=== PATIENT | female | born 1985 | race African-American/Black ===

== ENCOUNTER 2018-10-20 09:44 | Emergency (ER) | payer BC ==
[~2018-10-20] VITALS: Ht 167.6 cm; Wt 82.0 kg
[2018-10-20 10:03] VITALS: BP 155/68
== END 2018-10-20 10:25 | disposition left against medical advice (07) ==
LOC: ER 09:44
DX: Z53.21 Procedure and treatment not carried out due to patient leaving prior to being seen by health care provider (principal)
CPT/HCPCS: 93005

== ENCOUNTER 2021-07-14 08:08 | Emergency (ER) | payer BC, MEDICAID ==
[~2021-07-14] VITALS: Ht 170.2 cm; Wt 82.0 kg
[2021-07-14] MEDS ORDERED: FAMOTIDINE 20MG/2ML VIAL IV STA (08:24)
[2021-07-14] MEDS ORDERED: MORPHINE SULFATE 4 MG/ML CPJ (NOT FOR IM USE) IV STA (08:24)
[2021-07-14] MEDS ORDERED: ONDANSETRON HCL 4MG/2ML INJ IV STA (08:24)
[2021-07-14] MEDS ORDERED: SODIUM CHLORIDE 0.9% 1,000 ML IV ONE ×2 (08:30→11:45)
[2021-07-14 08:56] LABS: BASOPHILS % 0.4 % (0.0-2.0); EOSINOPHILS % 0.1 % (0.0-5.0); HEMATOCRIT. 45.1 % (36.0-48.0); HEMOGLOBIN. 14.9 g/dL (12.0-16.0); LYMPHOCYTES % 10.4 % (20.0-50.0); MEAN CORPUSCULAR HEMOGLOBIN 29.5 pg (28.0-32.0); MEAN CORPUSCULAR VOLUME 89.2 fL (81.0-99.0); MEAN PLATELET VOLUME 8.3 fl (7.4-10.4); MONOCYTES % 6.1 % (2.0-8.0); PLATELET 259 x1000/uL (130-400); RED BLOOD CELL COUNT 5.06 mill/uL (4.2-5.4); RED CELL DISTRIBUTION WIDTH 13.2 % (11.6-14.6)
[2021-07-14 09:04] LABS: CHLORIDE 104 mEq/L (98-107)
[2021-07-14 09:21] LABS: HCG SCREEN NEGATIVE
[2021-07-14] MEDS ORDERED: POTASSIUM CHLORIDE 20MEQ TABLET SR PO NR (09:45)
[2021-07-14 10:30] LABS: CLARITY URINE CLOUDY (CLEAR); COLOR URINE DARK YELLOW (YELLOW); KETONES URINE 3+ (NEGATIVE); LEUKOCYTE ESTERASE URINE TRACE (NEGATIVE); NITRITE URINE NEGATIVE (NEGATIVE); OCCULT BLOOD URINE 1+ (NEGATIVE); PROTEIN URINE 1+ (NEGATIVE); SPECIFIC GRAVITY URINE 1.034 (1.005-1.030)
[2021-07-14 11:15] LABS: *BARBITURATES SCREEN URINE NEGATIVE (NEGATIVE)
[2021-07-14 11:16] LABS: *AMPHETAMINES SCREEN URINE NEGATIVE (NEGATIVE); *COCAINE SCREEN URINE NEGATIVE (NEGATIVE); METHADONE URINE SCREEN NEGATIVE (NEGATIVE); PHENCYCLIDINE URINE SCREEN NEGATIVE (NEGATIVE)
[2021-07-14 11:17] LABS: *BENZODIAZEPINES SCREEN URINE NEGATIVE (NEGATIVE)
[2021-07-14 11:18] LABS: CANNABINOID URINE SCREEN PRESUMTIVE POSITIVE (NEGATIVE); OPIATES URINE SCREEN PRESUMTIVE POSITIVE (NEGATIVE)
[2021-07-14] MEDS ORDERED: MAGNESIUM/ALUMINUM HYDROXIDE/SIMETHICONE 30ML UDC PO STA (11:33)
[2021-07-14] MEDS ORDERED: VISCOUS LIDOCAINE 2% 15 ML UDC PO STA (11:33)
[2021-07-14] MEDS ORDERED: ONDA4TAB5 MT (13:12)
[2021-07-14] MEDS ORDERED: TRAM50TA94 MT (13:12)
[2021-07-14] MEDS ORDERED: KETOROLAC 15MG/ML VIAL IV NR (13:15)
[2021-07-14 14:29] VITALS: BP 115/62
[2021-07-14] MEDS ORDERED: ONDANSETRON HCL 4MG/2ML INJ IV ONE (14:30)
[2021-07-14] MEDS ORDERED: IOHEXOL-300 100 ML BOTTLE ONE (14:50)
== END 2021-07-14 14:42 | disposition home or self-care (01) ==
LOC: ER 08:08
DX: R10.13 Epigastric pain (principal); E87.6 Hypokalemia; F12.10 Cannabis abuse, uncomplicated; Z88.0 Allergy status to penicillin; Z98.84 Bariatric surgery status; Z86.14 Personal history of Methicillin resistant Staphylococcus aureus infection; Z86.711 Personal history of pulmonary embolism; Z79.01 Long term (current) use of anticoagulants
CPT/HCPCS: 36415; 74177; 76705; 80053; 80305; 81003; 83605; 83690; 84703; 85025; 93005; 96361; 96374; 96375; 96376; 99285; J1885; J2270; J2405; J3490; J7030; Q9967

== ENCOUNTER 2022-02-21 03:43 | Emergency (ER) | payer MEDICAID ==
[~2022-02-21] VITALS: Ht 170.2 cm; Wt 71.0 kg
[~2022-02-21 03:43] MED LIST: ONDA4TAB5 MT; TRAM50TA94 MT
[2022-02-21 03:44] VITALS: BP 101/52
== END 2022-02-21 04:36 | disposition left against medical advice (07) ==
LOC: ER 03:54
DX: Z53.21 Procedure and treatment not carried out due to patient leaving prior to being seen by health care provider (principal)

== ENCOUNTER 2024-06-21 11:51 | Emergency (ER) | payer MEDICAID ==
[~2024-06-21] VITALS: Ht 165.1 cm; Wt 73.0 kg
[2024-06-21 11:57] VITALS: O2SAT 100
[2024-06-21] MEDS ORDERED: ACETAMINOPHEN 325MG TABLET PO ONE (13:00)
[2024-06-21] MEDS ORDERED: ONDANSETRON 4MG ODT PO ONE (13:00)
[2024-06-21 13:03] LABS: CLARITY URINE CLEAR (CLEAR); COLOR URINE YELLOW (YELLOW); GLUCOSE URINE NEGATIVE (NEGATIVE); KETONES URINE NEGATIVE (NEGATIVE); LEUKOCYTE ESTERASE URINE TRACE (NEGATIVE); NITRITE URINE NEGATIVE (NEGATIVE); OCCULT BLOOD URINE NEGATIVE (NEGATIVE); PROTEIN URINE TRACE (NEGATIVE); SPECIFIC GRAVITY URINE 1.026 (1.005-1.030)
[2024-06-21] MEDS: ONDANSETRON 4MG ODT PO NR (14:28)
[2024-06-21] MEDS: ACETAMINOPHEN 325MG TABLET PO NR (14:28)
[2024-06-21] MEDS ORDERED: OFLO5DRO4 LEFT EAR (14:44)
[2024-06-21] MEDS ORDERED: DOXY100C5 MT (14:44)
[2024-06-21] MEDS ORDERED: METR-167 MT (14:45)
[2024-06-21 14:47] LABS: MUCUS URINE 2+ /lpf (< = 2+); SQUAMOUS EPITHELIAL CELL URINE 2+ /lpf (RARE/1+)
[2024-06-21 14:48] LABS: BACTERIA URINE TRACE; RBC URINE 0-2 /hpf (0-2); WBC URINE 0-2 /hpf (0-2)
[2024-06-21] MEDS: CEFTRIAXONE SODIUM 500MG VIAL IM ONE (15:02)
[2024-06-21 15:09] VITALS: BP 128/87; PULSE 85; RESP 18; TEMP 36.89184; O2SAT 100
[2024-06-24 06:11] LABS: CHLAMYDIA TRACHOMATIS NAA Negative (Negative); NEISSERIA GONORRHOEAE NAA Negative (Negative)
== END 2024-06-21 15:13 | disposition home or self-care (01) ==
LOC: ER 11:51
DX: S09.90XA Unspecified injury of head, initial encounter (principal); H60.92 Unspecified otitis externa, left ear; Z11.3 Encounter for screening for infections with a predominantly sexual mode of transmission; Z88.0 Allergy status to penicillin; Z98.890 Other specified postprocedural states; W18.30XA Fall on same level, unspecified, initial encounter; Y93.89 Activity, other specified; Y92.89 Other specified places as the place of occurrence of the external cause; Y99.8 Other external cause status
CPT/HCPCS: 99285; 70450; 86592; 87491; 87591; 81003; 81025; 87086; 87077; 36415; 70486; 72125; Q0162; J0696